=== PATIENT | male | born 1975 | race Caucasian/White ===

== ENCOUNTER → 2018-04-09 09:01 | Outpatient (CLI) | payer SELFPAY ==
[2018-04-09 10:34] LABS: Urine Drug scr, USCG NIDA See Separate Report
== END ==
PROVIDERS: Visit Provider Family Medicine
DX: Z02.1 Encounter for pre-employment examination (principal)
CPT/HCPCS: 81099

== ENCOUNTER → 2019-08-14 09:05 | Outpatient (CLI) | payer OTHER, SELFPAY ==
[2019-08-14 10:50] LABS: Add Manual Diff / Slide Review NO; Basophils Absolute Auto 100 /uL (0-100); Basophils Percent Auto 1.1 % (0-2); Eosinophils Absolute Auto 300 /uL (0-450); Eosinophils Percent Auto 5.8 % (2-4); Hematocrit 49.1 % (41-53); Hemoglobin 17.1 g/dL (13.5-17.5); Lymphocytes Absolute Auto 1700 /uL (1100-4500); Mean Corpuscular HGB Conc 34.8 % (30-36); Mean Corpuscular Hemoglobin 31.4 PG (26-34); Mean Corpuscular Volume 90.2 fL (80-100); Monocytes Absolute Auto 400 /uL (0-900); Monocytes Percent Auto 7.6 % (3-14); Neutrophils Absolute Auto 3000 /uL (1500-7000); Neutrophils Percent Auto 54.5 % (50-75); Platelet Count 227 X10^3/uL (150-400); Red Blood Cell Count 5.44 X10^6/uL (4.5-5.9); Red Cell Distribution Width 12.8 % (11.6-14.8); White Blood Cell Count 5.4 X10^3/uL (4.5-11.0)
[2019-08-14 11:23] LABS: Alanine Aminotransferase 25 IU/L (21-72); Albumin 4.3 g/dL (3.5-5.0); Albumin Globulin Ratio 1.3 (1.0-2.8); Alkaline Phosphatase 53 U/L (38-126); Aspartate Aminotransferase 28 IU/L (17-59); Bilirubin Total 0.8 mg/dL (0.2-1.3); Blood Urea Nitrogen 17 mg/dL (9-20); Calcium 9.5 mg/dL (8.4-10.2); Carbon Dioxide 32 mmol/L (22-32); Chloride 101 mmol/L (98-107); Cholesterol 177 mg/dL (140-199); Estimated Glomerular Filt Rate > 60.0 mL/min (>60); Globulin 3.2 g/dL (1.7-4.1); Glucose 86 mg/dL (70-100); HDL Cholesterol 50 mg/dL (40-60); HEMOLYSIS < 15 (0-50); LDL Cholesterol Calculated 106 mg/dL (<100); Potassium 4.2 mmol/L (3.4-5.1); Sodium 140 mmol/L (137-145); Total Protein 7.5 g/dL (6.3-8.2); Triglycerides 105 mg/dL (35-150)
== END ==
PROVIDERS: Visit Provider Family Medicine
DX: Z13.0 Encounter for screening for diseases of the blood and blood-forming organs and certain disorders involving the immune mechanism (principal); Z13.1 Encounter for screening for diabetes mellitus; Z13.220 Encounter for screening for lipoid disorders; Z13.6 Encounter for screening for cardiovascular disorders
CPT/HCPCS: 36415; 80053; 80061; 85025

== ENCOUNTER → 2019-08-21 10:44 | Outpatient (CLI) | payer OTHER, SELFPAY | PROVIDERS: PCP Family Medicine; Visit Provider Family Medicine | DX: F33.1 Major depressive disorder, recurrent, moderate (principal) | CPT/HCPCS: 36415; 84403 ==

== ENCOUNTER → 2021-07-14 10:55 | Outpatient (CLI) | payer OTHER, SELFPAY ==
--- NOTE | 2021-07-14 10:56 | DI.RAD.S_ITS ---
PROCEDURE: XR KNEE LT 3V INDICATIONS: Left lower Tibia contusion, pain, swelling TECHNIQUE: 3 views of the knee were acquired. COMPARISON: None. FINDINGS: Bones: No fractures or dislocations. No suspicious bony lesions. Mild medial femoral tibial compartment osteoarthritis is seen. Soft tissues: No joint effusion. No suspicious soft tissue calcifications. IMPRESSION: Mild medial femoral tibial compartment osteoarthritis. No fracture or dislocation. No joint effusion. Dictated by: Jacoby Powell M.D. on 07/14/2021 at 11:12 Approved by: Jacoby Powell M.D. on 07/14/2021 at 11:14
== END ==
PROVIDERS: PCP Family Medicine; Referring Provider Nurse Practitioner; Visit Provider Nurse Practitioner
DX: S80.12XA Contusion of left lower leg, initial encounter (principal); M17.12 Unilateral primary osteoarthritis, left knee; X58.XXXA Exposure to other specified factors, initial encounter
CPT/HCPCS: 73562

== ENCOUNTER → 2021-07-30 09:55 | Outpatient (CLI) | payer OTHER, SELFPAY ==
--- NOTE | 2021-07-30 | DI.US.S_ITS ---
PROCEDURE: US EXTREMITY NONVASC LOWER LT INDICATIONS: LOWER LEFT LEG HEMATOMA TECHNIQUE: Real-time scanning was performed of the left lower extremity. , with image documentation. COMPARISON: None. FINDINGS: There are multiple complex presumed fluid collections including in the left lower leg below the knee and at the lateral aspect measuring 3.2 x 0.9 x 2.4 cm. Additional left lower leg complex fluid collection with hypoechoic appearance measuring 3.9 x 0.7 x 2.8 cm. Left medial knee hypoechoic fluid collection measuring 2.0 x 0.6 x 1.3 cm. IMPRESSION: Multiple presumed complex fluid lesions presumably hematomas although recommend clinical correlation and clinical follow-up to resolution. Dictated by: Tk Linares M.D. on 07/30/2021 at 16:50 Approved by: Tk Linares M.D. on 07/30/2021 at 16:53
== END ==
PROVIDERS: PCP Family Medicine; Referring Provider Family Medicine; Visit Provider Family Medicine
DX: S80.12XA Contusion of left lower leg, initial encounter (principal)
CPT/HCPCS: 76882

== ENCOUNTER → 2023-09-20 17:00 | Outpatient (CLI) | payer OTHER, SELFPAY ==
--- NOTE | 2023-09-20 | DI.MRI.S_ITS ---
PROCEDURE: MR ANKLE LT WO CON INDICATIONS: other subluxation of lt foot, initial encounter TECHNIQUE: Noncontrast sagittal T1 spin echo and T2 fast spin echo with fat saturation, axial proton density fast spin echo and T2 fast spin echo with fat saturation, coronal T1 spin echo and T2 fast spin echo with fat saturation through the ankle/hindfoot. COMPARISON: None. FINDINGS: Image quality: Excellent. Bones and joints: There is mild marrow edema involving lateral portion of cuboid and lateral periphery of mid to distal calcaneus involving bony peroneal tubercle and retro trochlear prominence . No discrete fracture line. No other area of abnormal marrow signal. No fracture or dislocation. No hindfoot coalitions. No osteochondral injuries of the talar dome. No pathologic joint effusions. Medial structures: The posterior tibialis, flexor digitorum longus, and flexor hallucis longus tendons are intact. The posterior tibial neurovascular bundle appears normal within the tarsal tunnel, without extrinsic mass effect. The deep fibers of deltoid ligament are thickened. The superficial fibers are intact. The spring ligament is intact. Lateral structures: The anterior talofibular, calcaneofibular, and posterior talofibular ligaments appear intact. More superiorly, the anterior and posterior tibiofibular ligaments appear intact, as is the intermalleolar ligament. The tibiofibular syndesmosis is normal in width at 2 mm or less. The peroneus longus and brevis tendons are markedly thickened with intrasubstance T2 hyperintense signal at the level of lateral malleolus tip extending to the level of cuboid and TMT joints. Small amount of fluid distending peroneus tendon sheath is seen. The sinus tarsi demonstrates normal fatty signal, without edema, fibrosis, or cyst formation. Visualized sinus tarsi components (cervical ligament, interosseous talocalcaneal ligament, roots of the inferior extensor retinaculum) appear normal. The calcaneonavicular and calcaneocuboid components of the bifurcate ligament appear intact. The dorsal calcaneocuboid ligament appears intact. Anterior structures: The tibialis anterior, extensor hallucis longus, and extensor digitorum longus tendons appear intact. The dorsal talonavicular ligament appears intact. Posterior and plantar structures: There is significant thickening of the Achilles tendon with intrasubstance T2 hyperintense signal consistent with tendinosis and low to moderate grade intrasubstance partial-thickness tear. Medial and lateral bands of the plantar fascia are of normal thickness. No abductor digiti quinti muscle atrophy to suggest Sofia neuropathy. IMPRESSION: 1. Suggestion of bony contusion involving lateral periphery of cuboid and mid to distal calcaneus as described above. No fracture or dislocation. No osteochondral injuries of talar dome. 2. Moderate grade tendinosis and intrasubstance partial-thickness tear involving peroneus tendons at the level of lateral malleolus tip extending to the level of TMT joints. 3. Tendinosis and low to moderate grade intrasubstance partial-thickness tear involving distal Achilles tendon extending to its posterior calcaneal insertion. No Achilles tendon rupture. 4. Low-grade sprain involving deep fibers of deltoid ligament. Dictated by: Jacoby Powell M.D. on 09/21/2023 at 11:06 Approved by: Jacoby Powell M.D. on 09/21/2023 at 11:18
== END ==
PROVIDERS: PCP Family Medicine; Referring Provider Orthopaedic Surgery Foot and Ankle Surgery; Visit Provider Orthopaedic Surgery Foot and Ankle Surgery
DX: S93.332A Other subluxation of left foot, initial encounter (principal); S86.012A Strain of left Achilles tendon, initial encounter; S96.812A Strain of other specified muscles and tendons at ankle and foot level, left foot, initial encounter; S93.422A Sprain of deltoid ligament of left ankle, initial encounter; X58.XXXA Exposure to other specified factors, initial encounter
CPT/HCPCS: 73721

== ENCOUNTER 2023-09-26 09:47 | Day surgery (SDC) | payer OTHER, SELFPAY ==
[2023-09-26 10:09] VITALS: BMI 25.7
[2023-09-26 10:14] VITALS: BP 138/96; PULSE 54; RESP 19; TEMP 36.4; O2SAT 99
[2023-09-26] MEDS: LACTATED RINGERS 1,000 ML 42 ML IV (10:22)
--- NOTE | 2023-09-26 10:36 | P.HP_ITS ---
History of Present Illness History of Present Illness Date Patient Seen: 09/26/23 Time Patient Seen: 10:37 Chief complaint: Colonoscopy Narrative: The patient presents for colorectal screening. They have never had any previous examination for such. No personal or family history of colon cancer. On further history denies any recent gastrointestinal symptoms. No nausea, vomiting, abdominal pain, loss of appetite, unexplained weight loss, change in bowel habits, or blood per rectum. [facility] Medical History Candidal balanitis Major depressive disorder, recurrent episode, moderate Surgical History Status post arthroscopy Family History Brother Age: 57 Smoker Child Age: 14 Cancer Father Age: 80 Hypertension Mother Age: 80 Cancer Sister Age: 59 Cancer Social History household members: spouse Smoking Status: Never smoker alcohol intake: current Meds Home Medications and Allergies Home Medications Medication Instructions Recorded Confirmed Type melatonin 5 mg tablet 5 mg PO HS ##0 05/06/13 09/26/23 History Fluticasone Propionate (FLONASE) 2 spray intranasal QDAY #1 ea 09/03/13 09/26/23 Rx clotrimazole-betamethasone 1 1 applictn topical BID 4 weeks #15 06/29/20 09/26/23 Rx %-0.05 % topical cream grams sertraline 100 mg tablet 150 mg PO DAILY 09/26/23 09/26/23 History Allergies Allergy/AdvReac Type Severity Reaction Status Date / Time peanut [PEANUT] Allergy Mild ITCHING Verified 09/26/23 10:06 Exam Vital Signs (past 8 hours): - 09/26/23 10:14 Temperature 97.5 F L Pulse Rate 54 L Respiratory Rate 19 Blood Pressure 138/96 H Pulse Oximetry 99 Oxygen Delivery Method Room Air Oxygen Delivery Method Room Air Narrative Exam Narrative: General adult man alert oriented no acute distress Chest nonlabored respiration Extremities warm well perfused Assessment & Plan Assessment & Plan narrative: The patient requires colorectal screening and colonoscopy is recommended. Technical details were discussed. Risks, benefits, alternatives explained. Risks including but not limited to myocardial infarction, aspiration, bleeding, pain, missed lesion, incomplete examination, need for further radiographic studies, colonic perforation, and need for major abdominal surgery were discussed. All questions were answered to their satisfaction, and they are in agreement with this plan.
[2023-09-26 11:16] VITALS: BP 148/92; PULSE 86; RESP 13; TEMP 36.2; O2SAT 98
[2023-09-26 11:22] VITALS: BP 144/89; PULSE 63; RESP 12; O2SAT 95
--- NOTE | 2023-09-26 11:22 | P.OP.COLON_ITS ---
Operative Date/Time/Diagnoses Date of procedure: 09/26/23 Time of procedure: 11:22 Pre-op diagnosis: Colorectal screening Procedure & Clinicians Study performed: Colonoscopy Same procedure as scheduled: Yes Indications: Colorectal screening Surgeon: Malcolm Danielle Procedure Notes Procedure in detail: The history and physical was performed/updated and the patient is ASA class is 2. The procedure was discussed in detail with the patient. Potential risks complications including infection, bleeding, missed diagnosis, perforation, need for surgery, and were explained. Their questions were answered and informed consent was obtained. Patient was brought to the procedure room and placed standard monitoring equipment. The patient's vital signs were monitored continuously throughout the entire procedure. Prior to starting time-out was performed. The patient was placed in the left lateral recumbent position. Procedural sedation was administered by anesthesia. Examination began with a thorough inspection of the perianal area there was no evidence of fissures, fistulae, external hemorrhoids or cutaneous malignancy. The colonoscopy scope was then placed into the anal canal and was advanced to the cecum, which was identified by the ileocecal valve , the appendiceal orifice and the confluence of the taenia. The scope was then slowly withdrawn examining colon thoroughly in all directions, irrigating it of any residual stool. The scope was retroflexed within the rectum The patient tolerated the procedure well. They will be discharged once criteria are met. The prep was of good/excellent quality. The withdrawl time was 7 minutes. FINDINGS * Unremarkable colon. No masses polyps or inflammation. Specimen(s): none sent Impression: Normal healthy colon Post-procedure Recommendations: Colonoscopy in 10 years Disposition: same day surgery
[2023-09-26 11:27] VITALS: BP 132/91; PULSE 60; RESP 12; O2SAT 98
[2023-09-26 11:32] VITALS: BP 128/88; PULSE 60; RESP 16; O2SAT 99
[2023-09-26 11:40] VITALS: BP 138/96; PULSE 50; RESP 14; O2SAT 98
== END 2023-09-26 11:57 | disposition home or self-care (01) ==
PROVIDERS: PCP Family Medicine; Referring Provider Surgery; Visit Provider Surgery
PROC: 0DJD8ZZ Inspection of Lower Intestinal Tract, Via Natural or Artificial Opening Endoscopic (ICD-10-PCS; CPT 45378; principal; 2023-09-26 10:45)
DX: Z12.11 Encounter for screening for malignant neoplasm of colon (principal)
CPT/HCPCS: 45378; J2704